=== PATIENT | female | born 1980 | race Asian ===

== ENCOUNTER 2021-02-18 10:47 | Outpatient (REF) | payer BC, SELFPAY | END 2021-02-18 10:48 | disposition home or self-care (01) | LOC: HO.LAB 10:47 | PROVIDERS: Visit Provider Internal Medicine | DX: Z20.822 Contact with and (suspected) exposure to COVID-19 (principal) | CPT/HCPCS: U0003; U0005 ==

== ENCOUNTER 2021-02-18 11:19 | Emergency (ER) | payer BC, SELFPAY ==
--- NOTE | ~2021-02-18 | US_ITS ---
EXAMINATION: ULTRASOUND OB PELVIS AND TRANSVAGINAL. CLINICAL INFORMATION: 5 weeks with vaginal bleeding. COMPARISON: None TECHNIQUE: Transabdominal and transvaginal imaging of pelvis is performed. FINDINGS: There is intrauterine with visualization of gestational sac and a pole. The gestational sac is slightly irregular with a pole and a heart beat visualized. The pole measures 0.16 cm small for the machine to calculate age. There is visualization of yolk sac is well. The heart rate is 10 1 bpm Adjacent and to the left of gestational sac is a small hypoechoic area suggestive of subchorionic bleed measuring 1.6 x 0.8 x 1.0 cm. Also visualized are small small hypoechoic areas in the uterus likely small fibroids. The difficult to distinguish from each other the lower uterine segment fibroid is visualized and measures approximately 1.1 x 0.7 x 1.0 cm. Right ovary measures 2.8 x 3.2 x 2.7 cm with minimal free fluid adjacent to the ovary. The left ovary measures 3.3 x 1.9 x 2.1 cm There is no free fluid in the cul-de-sac. US/US OB pelvic and transvaginal IMPRESSION: Single live intrauterine fetus there are small crown-rump length to measure. By clinical LMP of 01/09/2021 she is 5 weeks and 5 days and JAMARCUS of 10/16/2021. The worrisome findings is a small subchorionic bleed measuring 1.6 cm wide and a slightly irregular shaped gestational sac. The fetus is alive with a heart rate of 101 bpm but 2 of the lower side. Also visualized a small hypoechoic uterine fibroids with the largest one in the lower uterine segment measuring 1.1 cm. There is minimal free fluid adjacent to the right ovary. No free fluid seen in the cul-de-sac. Results discussed with the Dr. Ramos by phone at 1:41 pm.
[2021-02-18 11:26] VITALS: BP 121/85; PULSE 84; RESP 16; TEMP 36.9; O2SAT 99; BMI 19.7
--- NOTE | 2021-02-18 11:48 | ED.PREGNANCY ---
HPI - General Chief complaint: Vaginal Bleeding Stated complaint: ultrasound Time Seen by Provider: 02/18/21 11:46 Source: patient and family Mode of arrival: ambulatory Limitations: no limitations History of Present Illness HPI Narrative: 40-year-old female in otherwise healthy she 2 P 0, patient took test at home and was positive LMP patient is not sure, patient felt some pelvic contractions last week then yesterday patient was passing blood clots. Currently no abdominal pain, no headache, no dizziness. Patient is from [place] here in [place] is visiting family member. Related Data Allergies Allergy/AdvReac Type Severity Reaction Status Date / Time promethazine [From Phenergan] Allergy Muscle Verified 02/18/21 11:32 cramps Review of Systems Review of Systems: All other systems are reviewed and are negative Constitutional: Reports as per HPI and Reports no additional constitutional complaints Eyes: Reports as per HPI and Reports no additional eye complaints Reports system reviewed and no additional complaints, except as documented Cardiovascular: Reports as per HPI and Reports no additional cardiovascular complaints Respiratory: Reports as per HPI and Reports no additional respiratory complaints Gastrointestinal: Reports as per HPI and Reports no additional gastrointestinal complaints Genitourinary: Reports no additional female genitourinary complaints Musculoskeletal: Reports no additional musculoskeletal complaints Skin/Breast: Reports system reviewed and no additional complaints, except as docu Psychiatric: Reports no additional psychiatric complaints Endocrine: Reports no additional endocrine complaints Hematologic/Lymphatic: Reports no additional hematologic/lymphatic complaints Allergic/Immunologic: Reports no additional allergic/immunologic complaints Reports system reviewed and no additional complaints, except as documented and Reports Abnormal speech present [facility] Past Medical History Medical History No known health problems Social History Social History Advance Directives: No Advance Directives Information Provided: Yes Patient : Yes Physical Exam Vital Signs: Vital Signs: Last Vital Signs Temp 98.4 F 02/18/21 11:26 Pulse 84 02/18/21 11:26 Resp 16 02/18/21 11:26 BP 121/85 02/18/21 11:26 Pulse Ox 99 02/18/21 11:26 Body Mass Index 19.7 Vital signs have been reviewed as appeared to be correct. Blood pressure normal. Heart rate normal. Respiration rate normal. Temperature normal. Oxygen saturation normal. Appearance: Alert. Oriented X3. No acute distress. Head: Normal external exam. Normocephalic. Atraumatic. No Jimenes signs noted. No raccoon eyes noted Eyes: PERRLA. EOMI. Conjunctiva and sclera normal. Eyelids normal. ENT: TM's Normal. Pharynx normal. Uvula midline. Moist mucous membranes. No trismus noted. No drooling noted. No muffled voice noted. Neck: Normal inspection. Neck supple. FROM. No adenopathy. Thyroid Normal. No meningeal signs. No neck mass noted. CVS: Normal heart rate and rhythm. Heart sound normal. No murmurs noted. Pulses normal throughout. Respiratory: No respiratory distress. Painless inspiration. Breath sounds normal. No wheezes/rales/rhonchi noted. Chest nontender. No accessory muscle usage noted or decreased air movement noted. Abdomen: Soft and nontender. Bowel sounds normal in all 4 quadrants. No distention noted. No organomegaly noted. No visible injury noted. Back: No CVA tenderness. Full range of motion noted. Skin: Skin warm and dry. Normal skin color. Normal skin turgor. No rashes/lesions/lacerations noted. Extremities: No lower extremity edema. Extremities exhibit normal range of motion. Extremities nontender. Neuro: Oriented X 3. Cranial nerve exam: II-XII are grossly intact No motor deficit. No sensory deficit. Reflexes normal. Course Course Course Narrative: Assessment and plan. 40-year-old female about 5 weeks by date, came in with vaginal bleeding, ultrasound showed 1 IUP, 1.6 cm subchorionic hemorrhage, fibroid. Patient's blood type is B positive reportedly. The above finding was discussed with Dr. Ramírez who recommended bedrest try to avoid any strenuous activity. And no Ob intervention is needed at this point. MDM - OB/Uterine Contractions Lab Data Attestation: I reviewed the patient's lab results. Result diagrams: 02/18/21 12:17 02/18/21 12:17 Labs: Lab Results 02/18/21 02/18/21 02/18/21 Range/Units 12:17 12:17 12:17 WBC 8.3 (4.8-10.8) X10*3/uL RBC 4.18 L (4.20-5.50) X10*6/uL Hgb 11.0 L (12.0-16.0) g/dl Hct 34.2 L (37-47) % MCV 81.8 (80-98) fL MCH 26.3 L (27.0-33.0) pg MCHC 32.2 (31.0-35.0) g/dl RDW 12.7 (11.0-16.0) % Plt Count 263 (160-400) X10*3/uL MPV 10.3 (9.4-12.3) fL Immature Gran % (Auto) 0.4 (0.0-0.4) % Neut % (Auto) 77.9 H (45-73) % Lymph % (Auto) 15.4 L (20-40) % [place] % (Auto) 4.3 (2-11) % Eos % (Auto) 1.8 (0-4) % Baso % (Auto) 0.2 (0-2) % Lymph # (Auto) 1.3 (1.2-4.9) X10*3/uL [place] # (Auto) 0.4 (0.1-1.2) X10*3/uL Eos # (Auto) 0.2 (0.0-0.4) X10*3/uL Baso # (Auto) 0.0 (0.0-0.2) X10*3/uL Abs Immat Gran (auto) 0.03 (0.00-0.03) X10*3/uL Absolute Neuts (auto) 6.5 (2.0-8.3) X10*3/uL Absolute Nucleated RBC 0.000 (0.0-0.012) X10*3/uL Nucleated RBC % (auto) 0.0 (0.0-0.2) /100WBC Sodium 138 (135-145) mmol/L Potassium 4.4 (3.3-5.1) mmol/L Chloride 106 (96-108) mmol/L Carbon Dioxide 26 (22-29) mmol/L Anion Gap 10 L (12-20) BUN 8 L (9-16) mg/dL Creatinine 0.79 (0.5-1.4) mg/dL Estim Creat Clear Calc 84.5 Estimated GFR > 60 Random Glucose 83 (60-115) mg/dL Calcium 9.3 (8.4-10.2) mg/dL Beta HCG, Quant 86935 mIU/mL Urine Color YELLOW Urine Appearance HAZY Urine pH 6.0 (5.0-8.0) Ur Specific [place] <= 1.005 (1.005-1.025) Urine Protein NEG (NEG-TRACE) MG/DL Urine Glucose (UA) NEG (NEG) MG/DL Urine Ketones NEG (NEG) MG/DL Urine Blood 2+ H (NEG) Urine Nitrite NEG (NEG) Ur Leukocyte Esterase NEG (NEG) Urine RBC 5-9 H (0) /HPF Urine WBC 0 (0-4) /HPF Ur Squamous Epith Cells 1+ /LPF Ur Renal Epithelial Cell TRACE /LPF Urine Bacteria NONE /LPF Urine Test (NEGATIVE) 02/18/21 Range/Units 12:17 WBC (4.8-10.8) X10*3/uL RBC (4.20-5.50) X10*6/uL Hgb (12.0-16.0) g/dl Hct (37-47) % MCV (80-98) fL MCH (27.0-33.0) pg MCHC (31.0-35.0) g/dl RDW (11.0-16.0) % Plt Count (160-400) X10*3/uL MPV (9.4-12.3) fL Immature Gran % (Auto) (0.0-0.4) % Neut % (Auto) (45-73) % Lymph % (Auto) (20-40) % [place] % (Auto) (2-11) % Eos % (Auto) (0-4) % Baso % (Auto) (0-2) % Lymph # (Auto) (1.2-4.9) X10*3/uL [place] # (Auto) (0.1-1.2) X10*3/uL Eos # (Auto) (0.0-0.4) X10*3/uL Baso # (Auto) (0.0-0.2) X10*3/uL Abs Immat Gran (auto) (0.00-0.03) X10*3/uL Absolute Neuts (auto) (2.0-8.3) X10*3/uL Absolute Nucleated RBC (0.0-0.012) X10*3/uL Nucleated RBC % (auto) (0.0-0.2) /100WBC Sodium (135-145) mmol/L Potassium (3.3-5.1) mmol/L Chloride (96-108) mmol/L Carbon Dioxide (22-29) mmol/L Anion Gap (12-20) BUN (9-16) mg/dL Creatinine (0.5-1.4) mg/dL Estim Creat Clear Calc Estimated GFR Random Glucose (60-115) mg/dL Calcium (8.4-10.2) mg/dL Beta HCG, Quant mIU/mL Urine Color Urine Appearance Urine pH (5.0-8.0) Ur Specific [place] (1.005-1.025) Urine Protein (NEG-TRACE) MG/DL Urine Glucose (UA) (NEG) MG/DL Urine Ketones (NEG) MG/DL Urine Blood (NEG) Urine Nitrite (NEG) Ur Leukocyte Esterase (NEG) Urine RBC (0) /HPF Urine WBC (0-4) /HPF Ur Squamous Epith Cells /LPF Ur Renal Epithelial Cell /LPF Urine Bacteria /LPF Urine Test POSITIVE H (NEGATIVE) Imaging Data Pelvic ultrasound: Radiologist's impression: Single live intrauterine fetus there are small crown-rump length to measure. By clinical LMP of 01/09/2021 she is 5 weeks and 5 days and JAMARCUS of 10/16/2021. ?The worrisome findings is a small subchorionic bleed measuring 1.6 cm wide and a slightly irregular shaped gestational sac. The fetus is alive with a heart rate of 101 bpm but 2 of the lower side. ?Also visualized a small hypoechoic uterine fibroids with the largest one in the lower uterine segment measuring 1.1 cm. ?There is minimal free fluid adjacent to the right ovary. No free fluid seen in the cul-de-sac. Discharge Plan Discharge Clinical Impression: Threatened Patient Disposition: Home, Self-Care Instructions: Threatened Miscarriage (ED) Referrals: Physician,Unknown [Primary Care Provider] - 2 days
[2021-02-18 12:22] LABS: Basophils Percent Auto 0.2 % (0-2); Eosinophils Absolute Auto 0.2 X10*3/uL (0.0-0.4); Eosinophils Percent Auto 1.8 % (0-4); Hematocrit 34.2 % (37-47); Imm Gran Abs Auto 0.03 X10*3/uL (0.00-0.03); Imm Gran Pct Auto 0.4 % (0.0-0.4); Lymphocytes Absolute Auto 1.3 X10*3/uL (1.2-4.9); Lymphocytes Percent Auto 15.4 % (20-40); MANUAL DIFF FLAG NO; Mean Corpuscular HGB Conc 32.2 g/dl (31.0-35.0); Mean Corpuscular Hemoglobin 26.3 pg (27.0-33.0); Mean Corpuscular Volume 81.8 fL (80-98); Mean Platelet Volume 10.3 fL (9.4-12.3); Monocytes Absolute Auto 0.4 X10*3/uL (0.1-1.2); Monocytes Percent Auto 4.3 % (2-11); Neutrophils Absolute Auto 6.5 X10*3/uL (2.0-8.3); Neutrophils Percent Auto 77.9 % (45-73); Platelet Count 263 X10*3/uL (160-400); Red Blood Count 4.18 X10*6/uL (4.20-5.50); Red Cell Distribution Width 12.7 % (11.0-16.0); White Blood Count 8.3 X10*3/uL (4.8-10.8)
[2021-02-18 12:26] LABS: UPreg QC Valid YES; Urine Pregnancy POSITIVE (NEGATIVE)
[2021-02-18 12:28] LABS: Glucose Urine UA NEG (NEG); Leukocyte Esterase Urine NEG (NEG); Nitrite Urine NEG (NEG); Specific Gravity - Urine <= 1.005 (1.005-1.025); UACC Culture Trigger NO; Urine Blood 2+ (NEG); Urine Ketones NEG (NEG); Urine Protein NEG (NEG-TRACE)
[2021-02-18 12:31] LABS: Appearance Urine HAZY; Color Urine YELLOW
[2021-02-18 12:36] LABS: Renal Epithelial Cells Urine TRACE /LPF; Squamous Epithelial Cell Urine 1+ /LPF; WBC Urine 0 /HPF (0-4)
[2021-02-18 12:46] LABS: Anion Gap 10 (12-20); Blood Urea Nitrogen 8 mg/dL (9-16); Calcium 9.3 mg/dL (8.4-10.2); Carbon Dioxide 26 mmol/L (22-29); Chloride 106 mmol/L (96-108); Creatinine Clr Calc Pharmacy 84.5; Estimated Glomerular Filt Rate > 60; Glucose Random 83 mg/dL (60-115); Potassium 4.4 mmol/L (3.3-5.1); Sodium 138 mmol/L (135-145)
[2021-02-18 12:53] LABS: HCG Quantitative 10277 mIU/mL
--- NOTE | 2021-02-18 13:13 | PC.NURSE ---
PT SEEN FULLY DRESSED AND WALKING OUT OF ED WITH FAMILY MEMBER
== END 2021-02-18 14:17 | disposition home or self-care (01) ==
PROVIDERS: Emergency Provider Emergency Medicine
DX: O20.0 Threatened abortion (principal); O09.521 Supervision of elderly multigravida, first trimester; Z3A.01 Less than 8 weeks gestation of pregnancy
CPT/HCPCS: 36415; 76801; 76817; 80048; 81001; 81025; 84702; 85025; 99283; 99284